=== PATIENT | female | born 1985 | race Caucasian/White ===

== ENCOUNTER 2020-06-15 18:32 | Emergency (ER) | payer OTHER, MEDICAID ==
[~2020-06-15] VITALS: Ht 170.2 cm; Wt 83.9 kg
[2020-06-15] MEDS ORDERED: KEFLEX500 M1 PO (20:22)
[2020-06-15] MEDS ORDERED: NORCO 5-325 TA1 EAC2 PO (20:22)
[2020-06-15] MEDS ORDERED: CENTANY30 GM TOP (20:22)
[2020-06-15 20:37] VITALS: BP 148/84
== END 2020-06-15 20:38 | disposition home or self-care (01) ==
LOC: M.ERS 18:32
DX: S91.201A Unspecified open wound of right great toe with damage to nail, initial encounter (principal); W22.8XXA Striking against or struck by other objects, initial encounter; Y93.89 Activity, other specified; Y92.89 Other specified places as the place of occurrence of the external cause; Y99.8 Other external cause status